=== PATIENT | male | born 1995 | race Caucasian/White ===

== ENCOUNTER 2023-02-01 09:29 | Emergency (ER) | payer BC, SELFPAY ==
[2023-02-01 09:52] VITALS: BP 0/0; PULSE 0; RESP 0; TEMP -17.7; TEMP 0
--- NOTE | 2023-02-01 09:55 | PC.NURSE ---
Spoke with Barbi SCHERER. Pt was originally registered with ER, but told them he wanted to be seen in [facility]. She called to let me know that he would be reregistering for the [facility].
--- NOTE | 2023-02-01 09:57 | EXP.UTC ---
Discharge Plan Disposition Patient Disposition: Home, Self-Care Condition: Good Prescriptions Prescriptions: New ondansetron 4 mg Tablet,Disintegrating 4 mg PO Q8H PRN (Reason: Nausea) Qty: 12 0RF meclizine 25 mg tablet 25 mg PO BID PRN (Reason: dizziness) Qty: 20 0RF Referrals Follow up/Referrals: Provider,Referral, MD [Primary Care Provider] - See instructions Activity Restrictions/Add. Instructions Additional Instructions/Restrictions: Drink plenty of fluids. Take the medications as directed. Follow up with your regular doctor. GO TO THE ER FOR ANY WORSENING SYMPTOMS The meclizine (antivert) will make you drowsy, so don't drive or operate heavy machinery after taking it. The zofran (ondesetron) is for nausea/vomiting. Clinical Impressions Clinical Impression: Patient left before triage assessment Stand Alone Forms Stand Alone Forms: Work/School Release Instructions Patient Instructions: DI for Vertigo, Ondansetron, Meclizine Discharge ED Provider: Rad Carrington [facility] General Stated complaint: vertigo,dizzy Time Seen by Provider: 02/01/23 09:33 History of Present Illness Provider Complaint: He states that for the past 2 days he has had worsening dizziness. He has a history of having episodes like this. He denies other symptoms other than he has a mild sore throat and nausea. Related Data Previous Rx's Medication Instructions Recorded meclizine 25 mg tablet 25 mg PO BID PRN dizziness #20 tabs 02/01/23 ondansetron 4 mg disintegrating 4 mg PO Q8H PRN Nausea #12 tabs 02/01/23 tablet Allergies Allergy/AdvReac Type Severity Reaction Status Date / Time No Known Allergies Allergy Verified 02/01/23 10:18 [facility] Disclaimer: The information contained in this section may have been updated after the patient was seen, as this information can be updated by other users. Social History Smoking Status: Never smoker alcohol intake: never current occupational status: employed Travel in the last 8 weeks: None ROS Obtained: Yes All systems reviewed & no additional complaints except as documented Constitutional Constitutional: Denies chills and Denies fever(s) Eyes Eyes: Denies eye discharge ENT Ears, Nose, Mouth, and Throat: Denies dizziness, Denies otalgia and Denies sore throat Cardiovascular Cardiovascular: Denies chest pain Respiratory Respiratory: Denies shortness of breath, Denies chest congestion, Denies cough, Denies stridor and Denies wheezing Gastrointestinal Gastrointestingal: Denies nausea or vomiting Musculoskeletal Musculoskeletal: Reports system reviewed and no additional complaints, except as documented and Denies arthralgias Integumentary/Breasts Skin/Breast: Denies rash Neurologic Neurologic: Reports as per HPI, Denies dizziness and Denies paresthesias Allergic/Immunologic Allergic/Immunologic: Denies wheezing Physical Exam General General appearance: alert and in no apparent distress Head Head exam: atraumatic, normocephalic and normal inspection Eye Eye exam: Present normal appearance, PERRL and EOMI ENT ENT exam: Present normal exam, normal oropharynx, mucous membranes moist, TM's normal bilaterally and normal external ear exam Neck Neck exam: Present normal inspection, full ROM and trachea midline; Absent meningismus or lymphadenopathy Chest Chest inspection: Present normal inspection and symmetric chest wall rise; Absent tenderness Respiratory Respiratory exam: Present normal lung sounds bilaterally; Absent respiratory distress Cardiovascular Cardiovascular exam: Present regular rate and normal rhythm; Absent JVD Abdominal Exam Abdominal exam: Present soft and normal bowel sounds; Absent distention, tenderness or guarding Extremities Exam Extremities exam: Present normal inspection, full ROM and normal capillary refill; Absent calf tenderness Back Exam Back exam: Present normal inspection; Absent tenderness Neurological Exam
[2023-02-01 10:13] VITALS: BP 133/79; PULSE 111; RESP 18; TEMP 36.9; O2SAT 100; BMI 28.7
[2023-02-01 11:03] VITALS: BP 133/79; PULSE 111; RESP 18; TEMP 36.9; O2SAT 100
== END 2023-02-01 11:04 | disposition home or self-care (01) ==
PROVIDERS: Emergency Provider Nurse Practitioner Family
DX: R42 Dizziness and giddiness (principal); R11.0 Nausea
CPT/HCPCS: 99202; 99212; G0463

== ENCOUNTER 2023-04-18 08:16 | Emergency (ER) | payer BC, SELFPAY ==
[2023-04-18 08:20] VITALS: BP 120/78; PULSE 68; RESP 18; TEMP 36.5; O2SAT 100; BMI 30.4
--- NOTE | 2023-04-18 08:40 | EXP.UTC ---
Discharge Plan Disposition Patient Disposition: Home, Self-Care Condition: Good Prescriptions Prescriptions: New doxycycline hyclate 100 mg capsule 100 mg PO BID 7 Days Qty: 14 0RF No Action clonidine HCl 0.1 mg tablet 0.1 mg PO DAILY Patient Comments: TAKE 1 TABLET BY MOUTH ONCE DAILY AT BEDTIME FOR 30 DAYS quetiapine 200 mg tablet 200 mg PO DAILY Patient Comments: TAKE 1 TABLET BY MOUTH ONCE DAILY AT BEDTIME FOR 60 DAYS trazodone 100 mg tablet 200 mg PO DAILY Patient Comments: TAKE 2 TABLETS BY MOUTH ONCE DAILY AT BEDTIME escitalopram oxalate 10 mg tablet 10 mg PO DAILY Patient Comments: TAKE 1 TABLET BY MOUTH ONCE DAILY IN THE MORNING FOR 60 DAYS Referrals Follow up/Referrals: Provider,Referral, MD [Primary Care Provider] - See instructions Activity Restrictions/Add. Instructions Additional Instructions/Restrictions: NO sexual activitity until you finish all your medication and your results are back and are negative Follow up with your Family Doctor for recheck if no improvement of symptoms Straight to ER if any life threatening symptoms Clinical Impressions Clinical Impression: Exposure to STD Instructions Patient Instructions: Facts About Sexually Transmitted Infections, How to Detect and Treat STDs, Chlamydia: The Silent STD Discharge ED Provider: Erika Armstrong [facility] HPI General Stated complaint: painful urination, STD panel Time Seen by Provider: 04/18/23 08:30 History of Present Illness Provider Complaint: Patient states that he is having a little burning and irritation with urination States that he had Chlamydia about a few months back and took medication for it but thinks it has flared up again requesting to be tested and get treated anyhow since this is the same symptoms he had before Related Data Home Medications Medication Instructions Recorded Confirmed clonidine HCl 0.1 mg tablet 0.1 mg PO DAILY 04/18/23 04/18/23 escitalopram oxalate 10 mg tablet 10 mg PO DAILY 04/18/23 04/18/23 quetiapine 200 mg tablet 200 mg PO DAILY 04/18/23 04/18/23 trazodone 100 mg tablet 200 mg PO DAILY 04/18/23 04/18/23 Previous Rx's Medication Instructions Recorded doxycycline hyclate 100 mg capsule 100 mg PO BID 7 days #14 caps 04/18/23 Allergies Allergy/AdvReac Type Severity Reaction Status Date / Time No Known Allergies Allergy Verified 04/18/23 08:49 [facility] Disclaimer: The information contained in this section may have been updated after the patient was seen, as this information can be updated by other users. Social History Smoking Status: Never smoker alcohol intake: never current occupational status: employed Travel in the last 8 weeks: None ROS Obtained: Yes All systems reviewed & no additional complaints except as documented and Yes Systems reviewed as appropriate & no additional complaints except as documented Constitutional Constitutional: Reports system reviewed and no additional complaints, except as documented, Reports as per HPI and Denies fever(s) ENT Ears, Nose, Mouth, and Throat: Reports system reviewed and no additional complaints, except as documented and Reports as per HPI Cardiovascular Cardiovascular: Reports system reviewed and no additional complaints, except as documented and Reports as per HPI Respiratory Respiratory: Reports system reviewed and no additional complaints, except as documented and Reports as per HPI Gastrointestinal Gastrointestingal: Reports system reviewed and no additional complaints, except as documented and as per HPI Genitourinary Male Genitourinary: Reports system reviewed and no additional complaints, except as documented and Reports as per HPI Musculoskeletal Musculoskeletal: Reports system reviewed and no additional complaints, except as documented and Reports as per HPI Integumentary/Breasts Skin/Breast: Reports system review
[2023-04-18 09:25] VITALS: BP 120/78; PULSE 68; RESP 18; TEMP 36.5; O2SAT 100
[2023-04-20 23:22] LABS: Neisseria gonorrhoeae, NAA Negative (Negative)
== END 2023-04-18 09:25 | disposition home or self-care (01) ==
PROVIDERS: Emergency Provider Nurse Practitioner
DX: R30.0 Dysuria (principal); Z20.2 Contact with and (suspected) exposure to infections with a predominantly sexual mode of transmission
CPT/HCPCS: 81003; 87086; 87491; 87591; 96372; 99212; 99214; G0463; J0696

== ENCOUNTER 2024-02-14 10:53 | Outpatient (CLI) | payer BC, SELFPAY ==
--- NOTE | 2024-02-14 10:56 | US_ITS ---
FINAL REPORT CLINICAL HISTORY: PAIN FINDINGS: RIGHT UPPER QUADRANT ULTRASOUND Sonographic images of the right upper quadrant were obtained. The pancreas is partially obscured. There is fatty infiltration of the liver. Multiple gallstones are identified. The common duct is normal. Limited images of the right kidney are normal. IMPRESSION: Fatty liver. Cholelithiasis. Reviewed, Interpreted and Dictated by Haresh Prabhakar MD Transcribed by Lidia Rouse Authenticated and . [facility]
== END 2024-02-14 23:59 | disposition home or self-care (01) ==
LOC: RAD 10:54
PROVIDERS: PCP Family Medicine; Visit Provider Family Medicine
DX: R10.11 Right upper quadrant pain (principal); R11.0 Nausea
CPT/HCPCS: 76705

== ENCOUNTER 2024-02-29 13:18 | Outpatient (CLI) | payer BC, SELFPAY ==
[2024-02-29 14:02] LABS: Basophils # 0.1 K/mm3 (0-0.2); Basophils % 2.3 % (0.1-2.0); Eosinophils # 0.3 K/mm3 (0.0-0.4); Eosinophils % 8.3 % (0.1-12.0); Hematocrit 42.9 % (42.0-52.0); Hemoglobin 15.3 g/dL (14.1-18.0); Lymphocytes # 1.6 K/mm3 (0.7-4.5); Lymphocytes % 39.2 % (10-50); Mean Corpuscular HGB Conc 35.6 g/dL (31.8-35.4); Mean Platelet Volume 7.9 fl (7.4-10.4); Monocytes # 0.3 K/mm3 (0.1-1.0); Monocytes % 6.8 % (1.7-9.3); Neutrophils # 1.7 K/mm3 (1.8-7.8); Neutrophils % 43.3 % (37.0-80.0); Platelet Count 194 K/mm3 (142-424); Red Blood Count 4.93 M/mm3 (4.60-6.20); Red Cell Distribution Width 13.4 % (11.5-17.5)
[2024-02-29 14:24] LABS: Chloride 104 mmol/L (98-107)
[2024-02-29 14:25] LABS: Albumin Level 4.7 g/dl (3.5-5.0); Potassium 3.9 mmoL/L (3.5-5.1); Sodium 141 mmol/L (136-145)
[2024-02-29 14:27] LABS: Blood Urea Nitrogen 12 mg/dl (9-20); Estimated Glomerular Filt Rate 80 ml/min (>60); GFR (African American) 96 ML/MIN (>60)
[2024-02-29 14:28] LABS: Alanine Aminotransferase 206 U/L (12-78); Albumin/Globulin Ratio 1.7 (1.1-1.8); Alkaline Phosphatase 85 U/L (38-126); Anion Gap 11.9 mEq/L (5-15); Aspartate Amino Transferase 48 U/L (17-59); Bilirubin,Total 0.7 mg/dl (0.2-1.3); Calcium 9.4 mg/dl (8.4-10.2); Carbon Dioxide 29 mmol/L (22.0-30.0); Globulin 2.7 g/dL (1.3-3.2); Glucose 108 mg/dl (74-100); Total Protein,Serum 7.4 g/dl (6.3-8.2)
== END 2024-02-29 23:59 | disposition home or self-care (01) ==
LOC: LAB 13:19
PROVIDERS: PCP Family Medicine; Visit Provider Surgery
DX: K82.9 Disease of gallbladder, unspecified (principal)
CPT/HCPCS: 36415; 80053; 85025

== ENCOUNTER 2024-03-15 05:58 | Day surgery (SDC) | payer BC, SELFPAY ==
[2024-03-09 08:18] VITALS: BMI 32.3
[2024-03-15] VITALS (11 sets, daily range): BP systolic 119–140; BP diastolic 61–96; PULSE 43–71; RESP 18–19; TEMP 36.3–43; O2SAT 93–100
[2024-03-15] MEDS: LACTATED RINGERS 1000ML 1,000 ML 25 ML IV (06:36)
--- NOTE | 2024-03-15 06:50 | EXP.ANES.CKL ---
[facility] Disclaimer: The information contained in this section may have been updated after the patient was seen, as this information can be updated by other users. Medical History (Updated 03/15/24 @ 06:35 by Shannan Botello RN) Hx of bipolar disorder Anxiety and depression Heart murmur Surgical History History of appendectomy Family History Other No significant family history Social History (Updated 03/15/24 @ 06:35 by Shannan Botello RN) Smoking Status: Never smoker alcohol intake: former substance use type: denies use current occupational status: employed Travel in the last 8 weeks: None [facility] Anesthesia Checklist Patient Identification Patient Identification: Arm Band and Family Structural Data Admitted From: Home Planned Operative Procedure/s: Lap Chery Consent for Planned Operative Procedure(s) Verified: Yes Verified Documents: Surgical Consent and History and Physical NPO Status Verified Time NPO: 00:00 Additional verifications Patient : No Anesthesia Reactions: No Hx Blood Transfusions: No Blood Transfusion Reaction: No Cephalosporin Allergy: No Previous Colonoscopy: No Airway Assessment Mallampati Score:: Class II C-Spine Mobility Assessed: Yes TMJ Mobility Assessed: Yes Dentition: Good Dentition Neurological Assessment Level of Consciousness: Awake, Alert, Appropriate and Follows Commands Hx Seizures: No Numbness or tingling in extremities: No Anesthesia Plan Anesthesia Risk discussed: Yes ASA Class: II Anesthesia Type: General Preoperative Comments Pre-Operative Comments: Asymptomatic Murmur. Vapes. Occasional MJ.
[2024-03-15] MEDS: CEFAZOLIN SODIUM 2 GM in 0.9 % SODIUM CHLORIDE 100 ML IV (07:17)
[2024-03-15] MEDS: LIDOCAINE 1% 20ML MDV 20 ML (07:48)
[2024-03-15] MEDS: SODIUM CHLORIDE IRRIG SOLUTION 3,000 ML 200 ML IR (07:50)
--- NOTE | 2024-03-15 08:28 | P.OP_ITS ---
Date of procedure: 03/15/24 Pre-op Diagnosis:: Symptomatic cholelithiasis Post-op Diagnosis:: Chronic calculus cholecystitis Procedure performed:: Laparoscopic cholecystectomy Surgeon:: Rei Stewart MD RESIDENT SERVICES COORDINATOR:: Rad Magallon Anesthesia: GETA Estimated blood loss (mL): 15 Operative findings:: Pericholecystic fat stranding Significant infundibular thickening Operative note:: After informed consent was obtained, the patient was taken to the operating room and placed in the supine position. General anesthesia was induced and the abdomen was prepped and draped in a sterile fashion. After infiltration with local anesthetic an infraumbilical incision was made. A Veress needle was placed in position. The abdomen was insufflated. A 5 mm optical trocar was placed in position. Under direct visualization, a 12 mm trocar was placed in the subxiphoid position and 2 additional 5 mm trocars were placed in the right upper quadrant. The gallbladder was elevated up and over the liver margin. The tissue around the cystic duct was carefully dissected. 3 clips were placed proximally and the duct was transected with harmonic linsey. Harmonic linsey were then utilized to dissect the gallbladder away from the liver margin with careful attention to the control of the cystic artery. The gallbladder was placed in a retrieval bag and removed through the subxiphoid trocar site. The right upper quadrant was thoroughly irrigated. No active bleeding or bile leak was noted. Fascia at the subxiphoid trocar site was reapproximated utilizing 0 Ethibond. The remaining trocars were removed. All wounds were irrigated and skin was closed with 4-0 Monocryl in a subcuticular fashion. Steri-Strips were applied. The patient's anesthetic agents were reversed and extubation was completed prior to transfer to recovery in stable condition. Condition: stable Disposition: PACU Specimens:: Gallbladder and contents Complications:: No immediate
--- NOTE | 2024-03-15 08:44 | EXP.ANES.I ---
[facility] Anesthesia Record Part I Anesthesia Record I Intake, IV Amount: 750 Hydration: Adequate Estimated blood loss (mL): 10 Urine output (mL): 0 Blood Products used (#): none Blood Pressure: 130/68 SaO2: 93 Pulse Rate: 47 Airway Patency: Patent Respiratory Rate: 18 Temperature: 98 F Patient is:: Drowsy and Stable Stable to PACU at:: 08:30
[2024-03-15] MEDS: MORPHINE 2MG/ML SYRINGE 2 MG IV (08:51)
[2024-03-15] MEDS: HYDROMORPHONE 2MG/ML SYRINGE 0.5 MG IV (08:59)
--- NOTE | 2024-03-15 12:08 | P.PNANES_ITS ---
[facility] Anesthesia Record Part II Anesthesia Record Part II Discharge Time: 09:00 Destination: Surgical Day Care (OP Surgery) PACU nurse assessment reviewed?: Yes Patient Condition:: Good Anesthesia Complications:: None Swallowing reflex intact?: Yes Airway Patency: Patent Cyanosis?: No Blood Pressure: 138/76 SaO2: 96 Respiratory Rate: 19 Pulse Rate: 62 Temperature: 97.6 F Mental Status: Alert & Oriented Pain level:: 6 Nausea and/or vomitting:: None Intake, IV Amount: 0 Hydration: Adequate
== END 2024-03-15 09:35 | disposition home or self-care (01) ==
PROVIDERS: PCP Family Medicine; Visit Provider Surgery
PROC: 0FT44ZZ Resection of Gallbladder, Percutaneous Endoscopic Approach (ICD-10-PCS; CPT 47562; principal; 2024-03-15 07:30)
DX: K80.10 Calculus of gallbladder with chronic cholecystitis without obstruction (principal)
CPT/HCPCS: 47562; 96374; J3490; J0690; J1100; J1171; J2250; J2270; J2405; J3010; J7120

== ENCOUNTER 2024-07-27 20:42 | Emergency (ER) | payer BC, SELFPAY ==
[2024-07-27 21:27] VITALS: BP 123/76; PULSE 52; RESP 16; TEMP 37.1; O2SAT 99; BMI 29.9
--- NOTE | 2024-07-27 23:05 | ED_ITS ---
Discharge Plan Disposition Patient Disposition: Home, Self-Care Condition: Good Prescriptions Prescriptions: No Action quetiapine [Seroquel] 400 mg tablet 400 mg PO DAILY trazodone 300 mg tablet 300 mg PO DAILY Referrals Follow up/Referrals: Alexey Malhotra MD [Primary Care Provider] - See instructions Activity Restrictions/Add. Instructions Additional Instructions/Restrictions: You were evaluated in the ER and are appropriate for discharge at this time. Drink plenty of fluids including water, Gatorade, Pedialyte to help maintain good hydration. Eat a high-fiber diet to maintain good bowel movements. Follow-up with your primary care doctor for reevaluation. Return to the ER with any new, worsening, or otherwise concerning symptoms. Clinical Impressions Clinical Impression: Constipation Stand Alone Forms Stand Alone Forms: Work/School Release Print Language Print Language: Emirati Discharge ED Provider: Elina Best General Adult HPI General Chief complaint: PAIN Stated complaint: Constipated Time Seen by Provider: 07/27/24 23:02 Mode of Arrival: Ambulatory Source of Information: Patient Description of Symptoms (Recalled from ER Triage Doc. by RN): patient reports having abd pain with nausea and being really constipation. Reports having a large BM approximate one hour. Vomiting x 1 last night. Worried about having a bowel obstruction History of Present Illness HPI narrative: 29-year-old male presents to the ER with lower abdominal pain, nausea, constipation. Patient reports he had had 2 weeks of constipation, last night he drank 45 ounces of apple juice attempting to have a bowel movement. He states he had nausea after doing this and had 1 episode of emesis last night but it was nonbloody, nonbilious, and was related to the apple juice. He states he has had no other emesis. He states he was sent home from work at [employer] because he was having such significant abdominal pain. He states after getting home he had a large bowel movement, since being in the ER he has had additional bowel movements. He states he feels dramatically improved and is asking to be discharged. He states even though I was feeling better I still had to come up to the hospital because [employer] likes their paperwork . He denies dysuria, hematuria, fevers, chills, painful bowel movements, or any other associated symptoms at this time. He states he feels completely normal and would like to go home. Related Data Home Medications ?Medication ?Instructions ?Recorded ?Confirmed quetiapine 400 mg tablet (Seroquel) 400 mg PO DAILY 02/29/24 07/27/24 trazodone 300 mg tablet 300 mg PO DAILY 02/29/24 07/27/24 Allergies Allergy/AdvReac Type Severity Reaction Status Date / Time No Known Allergies Allergy Verified 03/28/24 09:33 [facility] Disclaimer: The information contained in this section may have been updated after the patient was seen, as this information can be updated by other users. Medical History (Updated 07/27/24 @ 23:10 by Sebas Mcdermott MD) Exposure to STD Hx of bipolar disorder Anxiety and depression Heart murmur Surgical History (Updated 03/28/24 @ 09:33 by MONI Patel) Hx laparoscopic cholecystectomy History of appendectomy Family History Other No significant family history Social History (Updated 03/28/24 @ 09:34 by MONI Patel) Smoking Status: Current every day smoker tobacco type: e-cigarettes alcohol intake: former substance use type: denies use current occupational status: employed Travel in the last 8 weeks: None Have you lived/traveled outside [place] in past 30 days?: No Contact w/someone who lives/traveled outside US past 30 days?: No Exposure to someone with infectious disease in past 14 days?: No Do you have a fever (greater than 100.4 F or 38 C)?: No Have you tested positive for COVID-19: No Exposed to someone with COVID-19 in past 14 days?: No Do you have a sore throat?: No Do you have a cough?: No Do you have any weakness?: No Do you have any diarrhea?: No Are you experiencing any unusual bleeding?: No Do you have any muscle aches/pain?: No Do you have any abdominal pain?: No Are you experiencing loss of taste or smell?: No ROS Obtained: Yes Systems reviewed as appropriate & no additional complaints except as documented per HPI Physical Exam General General appearance: alert and in no apparent distress Head Head exam: atraumatic and normocephalic Eye Eye exam: Present PERRL and EOMI ENT ENT exam: Present mucous membranes moist Neck Neck exam: Present normal inspection and full ROM Chest Chest inspection: Present symmetric chest wall rise Respiratory Respiratory exam: Absent respiratory distress or stridor Cardiovascular Cardiovascular exam: Present regular rate and normal rhythm Abdominal Exam Abdominal exam: Present soft; Absent distention, tenderness, guarding or rebound Comment: Abdominal exam completely benign, nontender Extremities Exam Extremities exam: Present full ROM Back Exam Back exam: Absent CVA tenderness (R) or CVA tenderness (L) Neurological Exam Neurological exam: Present alert and oriented X3; Absent motor sensory deficit Psychiatric Psychiatric exam: Present normal affect and normal mood Skin Skin exam: Present warm and dry Medical Decision Making Medical Records Screening: Per USPSTF and CDC recommendations, given the prevalence of disease in our region, it is our hospital?s policy to screen for HIV and viral Hepatitis for all patients aged 18 and over and those with ongoing risk factors. Berto Inquiry Pt receiving controlled substance: No Vital Signs: 07/27/24 21:27 Temperature 98.7 F Temperature Source Oral Pulse Rate [Right Brachial] 52 L Respiratory Rate 16 Blood Pressure [Right Arm] 123/76 Blood Pressure Mean [Right Arm] 91 Blood Pressure Source [Right Arm] Automatic Cuff Blood Pressure Position [Right Arm] Sitting 02 Sat by Pulse Oximetry 99 Oxygen Delivery Method Room Air Medical Decision Narrative: In summary, 29-year-old male presents to the ER with concerns of constipation abdominal pain that have since resolved. On evaluation he is hemodynamically stable, afebrile, abdominal exam is completely benign and nontender. He states he has had multiple bowel movements since initially checking in and feels significantly improved. He states he feels back to baseline and would like to be discharged with a work note. His vitals are reassuring, abdominal exam is benign, he has a reasonable explanation for his symptoms. He has had previous abdominal surgery which could increase the possibility of obstruction however his symptoms, vitals, and exam are not consistent with obstruction. He is extremely well-appearing and I do not believe he requires labs or imaging at this time. He states he has laxative at home which he may take to continue having bowel movements. I encouraged him to come back if he has any fevers, chills, worsening abdominal pain, vomiting, or inability to have bowel movements again. Patient was given instructions on symptomatic management, follow up instructions, and return precautions for the emergency department. Patient indicated understanding and was discharged in stable condition. Critical Care Critical Care Time Critical Care Time: No
[2024-07-27 23:15] VITALS: BP 138/78; PULSE 79; RESP 20; TEMP 36.6; O2SAT 99
== END 2024-07-27 23:18 | disposition home or self-care (01) ==
PROVIDERS: Emergency Provider Student in an Organized Health Care Education/Training Program; PCP Family Medicine
DX: K59.00 Constipation, unspecified (principal); R10.30 Lower abdominal pain, unspecified; R11.2 Nausea with vomiting, unspecified; F17.290 Nicotine dependence, other tobacco product, uncomplicated
CPT/HCPCS: 99281

== ENCOUNTER 2024-08-15 02:04 | Emergency (ER) | payer BC, SELFPAY ==
[2024-08-15 02:14] VITALS: BP 131/74; PULSE 85; RESP 18; TEMP 36.7; O2SAT 96; BMI 25.7
[2024-08-15] MEDS: LACTATED RINGERS 1000ML 1,000 ML 999 ML IV (02:37)
[2024-08-15] MEDS: KETOROLAC 30MG/ML VIAL 15 MG IV (02:38)
[2024-08-15] MEDS: ONDANSETRON 4MG/2ML VIAL 4 MG IV (02:39)
[2024-08-15 02:42] LABS: Basophils % 0.6 % (0.1-2.0); Eosinophils # 0.1 K/mm3 (0.0-0.4); Eosinophils % 2.6 % (0.1-12.0); Hematocrit 43.9 % (42.0-52.0); Hemoglobin 15.8 g/dL (14.1-18.0); Lymphocytes # 1.9 K/mm3 (0.7-4.5); Lymphocytes % 35.7 % (10-50); Mean Corpuscular Hemoglobin 30.6 pg (27.0-31.2); Mean Corpuscular Volume 84.9 fl (80-94); Mean Platelet Volume 9.8 fl (7.4-10.4); Monocytes # 0.5 K/mm3 (0.1-1.0); Monocytes % 9.6 % (1.7-9.3); Neutrophils # 2.8 K/mm3 (1.8-7.8); Neutrophils % 51.3 % (37.0-80.0); Nucleated Red Blood Cells # 0 10^3/uL; Nucleated Red Blood Cells % 0 %; Platelet Count 204 K/mm3 (142-424); Red Blood Count 5.17 M/mm3 (4.60-6.20); Red Cell Distribution Width-SD 37.4 fL; White Blood Count 5.4 K/mm3 (4.8-10.8)
[2024-08-15 02:59] LABS: Alanine Aminotransferase 29 U/L (12-78); Albumin Level 4.9 g/dl (3.5-5.0); Albumin/Globulin Ratio 1.4 (1.1-1.8); Alkaline Phosphatase 106 U/L (38-126); Anion Gap 14.4 mEq/L (5-15); Aspartate Amino Transferase 29 U/L (17-59); Bilirubin,Total 1.8 mg/dl (0.2-1.3); Blood Urea Nitrogen 14 mg/dl (9-20); Calcium 9.6 mg/dl (8.4-10.2); Carbon Dioxide 22 mmol/L (22.0-30.0); Chloride 104 mmol/L (98-107); Creatinine Clearance Estimated 99 mL/min (50-200); Estimated Glomerular Filt Rate 72 ml/min (>60); GFR (African American) 87 ML/MIN (>60); Globulin 3.5 g/dL (1.3-3.2); Glucose 110 mg/dl (74-100); Potassium 3.4 mmoL/L (3.5-5.1); Sodium 137 mmol/L (136-145); Total Protein,Serum 8.4 g/dl (6.3-8.2)
[2024-08-15 04:27] VITALS: BP 116/78; PULSE 76; RESP 16; TEMP 36.8; O2SAT 97
--- NOTE | 2024-08-15 04:28 | [facility].EDGENADL ---
Discharge Plan Disposition Patient Disposition: Home, Self-Care Condition: Good Prescriptions Prescriptions: New ondansetron 4 mg tablet,disintegrating 4 mg PO Q6H PRN (Reason: nausea and vomiting) 3 Days Qty: 10 0RF No Action quetiapine [Seroquel] 400 mg tablet 400 mg PO DAILY trazodone 300 mg tablet 300 mg PO DAILY Referrals Follow up/Referrals: Alexey Malhotra MD [Primary Care Provider] - See instructions Activity Restrictions/Add. Instructions Additional Instructions/Restrictions: You were evaluated in the ER and are believed to be appropriate for discharge at this time. Drink plenty of fluids including water, Gatorade, Pedialyte. Take the prescribed ondansetron if needed for nausea and vomiting. Call your primary care doctor for close follow-up. They can also perform stool test if you provide them a sample. You can also bring a sample back to the ER during the day today since there is a standing order for it. Return to the ER with any new, worsening, or otherwise concerning symptoms. Clinical Impressions Clinical Impression: Nausea, vomiting, and diarrhea Stand Alone Forms Stand Alone Forms: Work/School Release Instructions Patient Instructions: DI for Diarrhea and Traveler's Diarrhea -- Adult, DI for Diarrhea and Traveler's Diarrhea -- Child, DI for Nausea -- Adult, DI for Nausea -- Child Print Language Print Language: French Discharge ED Provider: Sebas Mcdermott Adult HPI General Chief complaint: Nausea/Vomiting/Diarrhea Stated complaint: nausea, vomiting, diarrhea, fever, unable to eat Time Seen by Provider: 08/15/24 02:17 Mode of Arrival: Ambulatory Source of Information: Patient Description of Symptoms (Recalled from ER Triage Doc. by RN): Pt states he has had nausea/vomiting/diarrhea for the past 3 days. Unable to keep solids down. Is able to tolerate most liquids. Pt states he has has recent fever today. Some tenderness with abdominal palpation throughout. History of Present Illness HPI narrative: 29-year-old male who has previously had appendectomy and cholecystectomy presents to the ER with nausea, vomiting, diarrhea for the last 2 to 3 days. Patient reports he is unable to tolerate solids by mouth. He is keeping down most liquids including water and electrolytes. He states he has felt like he had a fever but not taken his temperature. He states his abdomen does not have any areas of specific pain but is generally uncomfortable. No bloody or black stools. Emesis has been nonbloody, nonbilious. No other associated symptoms. Related Data Home Medications ?Medication ?Instructions ?Recorded ?Confirmed quetiapine 400 mg tablet (Seroquel) 400 mg PO DAILY 02/29/24 08/15/24 trazodone 300 mg tablet 300 mg PO DAILY 02/29/24 08/15/24 Previous Rx's ?Medication ?Instructions ?Recorded ondansetron 4 mg disintegrating 4 mg PO Q6H PRN nausea and 08/15/24 tablet vomiting 3 days #10 tabs Allergies Allergy/AdvReac Type Severity Reaction Status Date / Time No Known Allergies Allergy Verified 03/28/24 09:33 [facility] Disclaimer: The information contained in this section may have been updated after the patient was seen, as this information can be updated by other users. Medical History (Updated 08/15/24 @ 04:07 by Sebas Mcdermott MD) Scoliosis Manic depressive disorder Schizophrenia Exposure to STD Hx of bipolar disorder Anxiety and depression Heart murmur Surgical History (Updated 03/28/24 @ 09:33 by MONI Patel) Hx laparoscopic cholecystectomy History of appendectomy Family History Other No significant family history Social History (Updated 03/28/24 @ 09:34 by MONI Patel) Smoking Status: Current every day smoker tobacco type: e-cigarettes alcohol intake: former substance use type: denies use current occupational status: employed Travel in the last 8 weeks: None Have you lived/traveled outside [place] in past 30 days?: No Contact w/someone who lives/traveled outside [place] past 30 days?: No Exposure to someone with infectious disease in past 14 days?: No Do you have a fever (greater than 100.4 F or 38 C)?: Yes Have you tested positive for COVID-19: No Exposed to someone with COVID-19 in past 14 days?: No Do you have a sore throat?: No Do you have a cough?: No Do you have any weakness?: No Do you have any diarrhea?: Yes Are you experiencing any unusual bleeding?: No Do you have any muscle aches/pain?: No Do you have any abdominal pain?: No Are you experiencing loss of taste or smell?: No ROS Obtained: Yes Systems reviewed as appropriate & no additional complaints except as documented Physical Exam General General appearance: alert and in no apparent distress Head Head exam: atraumatic and normocephalic Eye Eye exam: Present PERRL and EOMI ENT ENT exam: Present mucous membranes moist Neck Neck exam: Present normal inspection and full ROM Chest Chest inspection: Present symmetric chest wall rise Respiratory Respiratory exam: Present normal lung sounds bilaterally; Absent respiratory distress, wheezes or stridor Cardiovascular Cardiovascular exam: Present regular rate and normal rhythm Abdominal Exam Abdominal exam: Present soft; Absent distention, tenderness, guarding or rebound Comment: Patient reports general discomfort with palpation but no areas of tenderness or pain in the abdomen Extremities Exam Extremities exam: Present full ROM Neurological Exam Neurological exam: Present alert and oriented X3; Absent motor sensory deficit Psychiatric Psychiatric exam: Present normal affect and normal mood Skin Skin exam: Present warm and dry Medical Decision Making Medical Records Screening: Per USPSTF and CDC recommendations, given the prevalence of disease in our region, it is our hospital?s policy to screen for HIV and viral Hepatitis for all patients aged 18 and over and those with ongoing risk factors. [place]erto Inquiry Pt receiving controlled substance: No Vital Signs: 08/15/24 02:14 Temperature 98.0 F Temperature Source Oral Pulse Rate [Right Radial] 85 Respiratory Rate 18 Blood Pressure [Right Arm] 131/74 Blood Pressure Mean [Right Arm] 93 Blood Pressure Source [Right Arm] Automatic Cuff Blood Pressure Position [Right Arm] Supine 02 Sat by Pulse Oximetry 96 Oxygen Delivery Method Room Air Lab Data Lab Results 08/15/24 02:33: WBC 5.4, RBC 5.17, Hgb 15.8, Hct 43.9, MCV 84.9, MCH 30.6, MCHC 36.0 H, RDW 12.0, Plt Count 204, MPV 9.8, Neut % (Auto) 51.3, Lymph % (Auto) 35.7, [place] % (Auto) 9.6 H, Eos % (Auto) 2.6, Baso % (Auto) 0.6, Neut # (Auto) 2.8, Lymph # (Auto) 1.9, [place] # (Auto) 0.5, Eos # (Auto) 0.1, Baso # (Auto) 0.0, Sodium 137, Potassium 3.4 L, Chloride 104, Carbon Dioxide 22, Anion Gap 14.4, BUN 14, Creatinine 1.20, Estimated Creat Clear 99, Estimated GFR 72, Est GFR ( Amer) 87, Glucose 110 H, Calcium 9.6, Total Bilirubin 1.8 H, AST 29, ALT 29, Alkaline Phosphatase 106, Total Protein 8.4 H, Albumin 4.9, Globulin 3.5 H, Albumin/Globulin Ratio 1.4 08/15/24 02:33 08/15/24 02:33 Orders (Tests/Meds): ED MEDICATIONS Discontinued Medications Generic Name Dose Route Start Last Admin Trade Name Freq PRN Reason Stop Dose Admin Lactated Ringer's 1,000 mls @ 999 mls/hr 08/15/24 02:16 08/15/24 02:37 Lactated Ringer's 1000 Ml Bag IV 08/15/24 03:16 999 mls/hr .Q1H1M ONE Administration Ketorolac Tromethamine 15 mg 08/15/24 02:17 08/15/24 02:38 Ketorolac 30mg/Ml Vial IV 08/15/24 02:18 15 mg ONCE ONE Administration Ondansetron HCl 4 mg 08/15/24 02:16 08/15/24 02:39 Ondansetron 4mg/2ml Vial IV 08/15/24 02:17 4 mg ONCE ONE Administration ORDERS Category Date Time Status CBC w/Auto Diff [Complete Blood Count Auto Diff] Stat Lab 08/15/24 02:33 Completed CMP [Comprehensive Metabolic Panel] Stat Lab 08/15/24 02:33 Completed Diarrhea 6-11 Panel, Cdiff PCR Stat Lab 08/15/24 02:17 Ordered HIV Combo Routine Lab 08/15/24 02:33 Received Hepatitis C Ab Qual. W/ RFX Routine Lab 08/15/24 02:33 Received Medical Decision Narrative: In summary, this 29-year-old male presents to the emergency department today with nausea, vomiting, diarrhea. On initial evaluation patient is hemodynamically stable, afebrile, overall well-appearing. Cardiopulmonary exam benign, abdominal exam very reassuring and that it is soft, no areas of localizing tenderness just mild generalized discomfort with palpation, no rebound or guarding, no peritonitic findings, remainder of exam benign. Differential diagnosis includes but is not limited to viral syndrome, I considered infectious diarrhea, electrolyte abnormality, kidney dysfunction, dehydration, I considered other more dangerous intra-abdominal pathology but have much lower suspicion for these since patient has a very reassuring abdominal exam. Based on these concerns, I ordered basic serum labs initially and do not believe the patient requires imaging at this time since his abdominal exam is reassuring. Patient received IV fluids, Zofran for treatment. Labs demonstrate no leukocytosis or anemia, normal platelets, CMP nonactionable. He does have very slight hyperbilirubinemia but no evidence of jaundice, no transaminitis. Labs are overall reassuring against acute pathology. Patient was unable to provide a diarrhea sample while in the ER. He is tolerating oral intake and resting comfortably. I do not believe further workup is indicated at this time. He is appropriate for discharge. Zofran was prescribed for symptomatic management outpatient. He was given instructions on continued symptomatic monitoring and management, outpatient medication use, follow-up instructions including to his PCP as well as the option of providing a stool sample, and strict return precautions for the ER. He indicated understanding and the patient was discharged in stable condition. Critical Care Critical Care Time Critical Care Time: No
[2024-08-15 04:54] LABS: HIV Combo NEGATIVE (Negative)
[2024-08-15 05:02] LABS: Hepatitis C Ab Qual. W/ RFX NEGATIVE (Negative)
== END 2024-08-15 04:15 | disposition home or self-care (01) ==
PROVIDERS: Emergency Provider Emergency Medicine; PCP Family Medicine
DX: R11.2 Nausea with vomiting, unspecified (principal); R10.817 Generalized abdominal tenderness; E86.0 Dehydration; R19.7 Diarrhea, unspecified; R50.9 Fever, unspecified
CPT/HCPCS: 80053; 85025; 86803; 87389; 96361; 96374; 96375; 99284; J1885; J2405; J7120